=== PATIENT | male | born 1940 | race Caucasian/White ===

== ENCOUNTER 2018-05-26 15:00 | Inpatient (IN) | payer OTHER, MEDICAID ==
[2018-05-26] MEDS ORDERED: DILTIAZEM 25 MG INJ (15:33)
[2018-05-26 15:34] LABS: ADD MAN DIFF? NO
[2018-05-26] MEDS: ASPIRIN 81 MG TAB PO (15:36)
[2018-05-26] MEDS: DILTIAZEM 25 MG INJ IV (15:37)
[2018-05-26] MEDS: SOD CHLORIDE 0.9% 500 ML IV (15:37)
[2018-05-26 15:40] LABS: HEMATOCRIT 38.9 % (42.0-52.0); HEMOGLOBIN 13.1 g/dl (14.0-18.0); LYMPHOCYTES % 16.9 % (15.0-51.0); MEAN CORPUSCULAR HEMOGLOBIN 28.1 pg (29.0-33.0); MEAN CORPUSCULAR HGB CONC 33.7 g/dl (32.0-37.0); MEAN CORPUSCULAR VOLUME 83.5 fl (82.0-101.0); MEAN PLATELET VOLUME 12.2 fl (7.4-10.4); NEUTROPHILS % 65.6 % (39.0-77.0); PLATELET COUNT 195 10^3/UL (140-415); RED BLOOD COUNT 4.66 10^6/ul (4.70-6.10); RED CELL DISTRIBUTION WIDTH 14.6 % (11.5-14.5)
[2018-05-26 15:41] LABS: BASOPHIL # 0.1 10^3/ul (0.0-0.1); BASOPHILS % 1.5 % (0.0-2.0); EOSINOPHILS # 0.6 10^3/ul (0.0-0.5); LYMPHOCYTES # 1.4 10^3/ul (0.8-2.9); MONOCYTE # 0.7 10^3/ul (0.3-0.9); MONOCYTES % 8.5 % (0.0-11.0); NEUTROPHIL # 5.2 10^3/ul (1.6-7.5)
[2018-05-26 16:19] LABS: TROPONIN-I < 0.012 ng/ml (0.000-0.120)
[2018-05-26 16:22] LABS: ANION GAP 15 (8-16); BLOOD UREA NITROGEN 25 mg/dl (7-20); CALCIUM 9.3 mg/dl (8.4-10.2); CARBON DIOXIDE 21 mmol/L (21-31); CHLORIDE 110 mmol/L (97-110); CREATININE 1.49 mg/dl (0.61-1.24); GLUCOSE 102 mg/dl (70-220); POTASSIUM 3.8 mmol/L (3.5-5.1); SODIUM 142 mmol/L (135-144)
[2018-05-26] MEDS ORDERED: ACETAMINOPHEN 325 MG TAB PO (18:30)
[2018-05-26] MEDS ORDERED: ONDANSETRON 4 MG INJ IV (18:30)
[2018-05-26] MEDS: METOPROLOL 50 MG TAB GTB ×2 (19:00→20:20)
[2018-05-26] MEDS ORDERED: NACL 0.9% 3 ML SYG IV (19:00)
[2018-05-26] MEDS: FUROSEMIDE 20 MG INJ IV ×2 (20:13→20:16)
[2018-05-26] MEDS: METOPROLOL 50 MG TAB PO (20:17)
[2018-05-26] MEDS: TERAZOSIN 1 MG CAP PO (23:52)
[2018-05-27] MEDS: FUROSEMIDE 20 MG INJ IV ×2 (05:43→17:25)
[2018-05-27 06:14] LABS: ADD MAN DIFF? NO
[2018-05-27 06:16] LABS: WHITE BLOOD COUNT 9.4 10^3/ul (4.8-10.8)
[2018-05-27 06:16] LABS: BASOPHIL # 0.1 10^3/ul (0.0-0.1); BASOPHILS % 1.1 % (0.0-2.0); EOSINOPHILS # 0.3 10^3/ul (0.0-0.5); EOSINOPHILS % 3.5 % (0.0-7.0); HEMATOCRIT 41.2 % (42.0-52.0); HEMOGLOBIN 13.7 g/dl (14.0-18.0); LYMPHOCYTES % 10.3 % (15.0-51.0); MEAN CORPUSCULAR HEMOGLOBIN 28.2 pg (29.0-33.0); MEAN CORPUSCULAR HGB CONC 33.3 g/dl (32.0-37.0); MEAN CORPUSCULAR VOLUME 84.9 fl (82.0-101.0); MEAN PLATELET VOLUME 12.6 fl (7.4-10.4); MONOCYTE # 0.6 10^3/ul (0.3-0.9); MONOCYTES % 6.3 % (0.0-11.0); NEUTROPHIL # 7.4 10^3/ul (1.6-7.5); NEUTROPHILS % 78.4 % (39.0-77.0); PLATELET COUNT 192 10^3/UL (140-415); RED BLOOD COUNT 4.85 10^6/ul (4.70-6.10); RED CELL DISTRIBUTION WIDTH 14.6 % (11.5-14.5)
[2018-05-27 06:45] LABS: HEMOGLOBIN A1C 5.6 % (0-5.9)
[2018-05-27 07:01] LABS: ADD UMIC NO; UR ASCORBIC ACID NEGATIVE (NEGATIVE); UR BILIRUBIN (Dip) NEGATIVE (NEGATIVE); UR BLOOD (Dip) NEGATIVE (NEGATIVE); UR CLARITY CLEAR (CLEAR); UR COLOR STRAW (YELLOW); UR GLUCOSE (Dip) NEGATIVE (NEGATIVE); UR KETONES (Dip) NEGATIVE (NEGATIVE); UR LEUKOCYTE ESTERASE (Dip) NEGATIVE Leu/ul (NEGATIVE); UR NITRITE (Dip) NEGATIVE (NEGATIVE); UR SPECIFIC GRAVITY (Dip) 1.009 (1.003-1.030); UR TOTAL PROTEIN (Dip) NEGATIVE (NEGATIVE); UR UROBILINOGEN (Dip) NEGATIVE (NEGATIVE)
[2018-05-27 07:03] LABS: ALANINE AMINOTRANSFERASE 48 IU/L (13-69); ALBUMIN/GLOBULIN RATIO 1.14; ALKALINE PHOSPHATASE 88 IU/L (42-121); ANION GAP 16 (8-16); ASPARTATE AMINO TRANSFERASE 48 IU/L (15-46); BILIRUBIN,INDIRECT 0.8 mg/dl (0-1.1); BILIRUBIN,TOTAL 0.8 mg/dl (0.2-1.3); BLOOD UREA NITROGEN 26 mg/dl (7-20); CALCIUM 9.1 mg/dl (8.4-10.2); CARBON DIOXIDE 18 mmol/L (21-31); CHLORIDE 111 mmol/L (97-110); CREATININE 1.45 mg/dl (0.61-1.24); GLUCOSE 109 mg/dl (70-220); SODIUM 141 mmol/L (135-144); TOTAL PROTEIN 7.5 g/dl (6.1-8.1)
[2018-05-27 07:21] LABS: THYROID STIMULATING HORMONE 0.812 MIU/L (0.465-4.680)
[2018-05-27] MEDS: AMLODIPINE 2.5 MG TAB PO (09:20)
[2018-05-27] MEDS: METOPROLOL 50 MG TAB GTB ×2 (09:21→21:50)
[2018-05-27] MEDS: TERAZOSIN 1 MG CAP PO (21:51)
[2018-05-27] MEDS: CALCIUM CARBONATE 500 MG CHEW TAB PO (21:57)
[2018-05-27] MEDS: ZOLPIDEM 5 MG TAB PO (21:57)
[2018-05-28 05:31] LABS: ADD MAN DIFF? NO
[2018-05-28 05:36] LABS: BASOPHIL # 0.1 10^3/ul (0.0-0.1); EOSINOPHILS # 0.4 10^3/ul (0.0-0.5); EOSINOPHILS % 3.1 % (0.0-7.0); HEMATOCRIT 41.8 % (42.0-52.0); LYMPHOCYTES # 1.4 10^3/ul (0.8-2.9); LYMPHOCYTES % 11.2 % (15.0-51.0); MEAN CORPUSCULAR HEMOGLOBIN 27.8 pg (29.0-33.0); MEAN CORPUSCULAR HGB CONC 33.5 g/dl (32.0-37.0); MEAN CORPUSCULAR VOLUME 83.1 fl (82.0-101.0); MEAN PLATELET VOLUME 12.3 fl (7.4-10.4); MONOCYTES % 8.1 % (0.0-11.0); NEUTROPHIL # 9.4 10^3/ul (1.6-7.5); PLATELET COUNT 209 10^3/UL (140-415); RED BLOOD COUNT 5.03 10^6/ul (4.70-6.10); RED CELL DISTRIBUTION WIDTH 14.9 % (11.5-14.5)
[2018-05-28 05:36] LABS: WHITE BLOOD COUNT 12.4 10^3/ul (4.8-10.8)
[2018-05-28] MEDS: FUROSEMIDE 20 MG INJ IV (05:39)
[2018-05-28 06:18] LABS: ANION GAP 18 (8-16); BLOOD UREA NITROGEN 34 mg/dl (7-20); CALCIUM 9.1 mg/dl (8.4-10.2); CARBON DIOXIDE 20 mmol/L (21-31); CHLORIDE 106 mmol/L (97-110); CREATININE 1.41 mg/dl (0.61-1.24); GLUCOSE 109 mg/dl (70-220); POTASSIUM 3.4 mmol/L (3.5-5.1); SODIUM 141 mmol/L (135-144)
[2018-05-28] MEDS: METOPROLOL 50 MG TAB GTB ×2 (08:36→21:57)
[2018-05-28] MEDS: AMLODIPINE 2.5 MG TAB PO (08:36)
[2018-05-28 15:30] LABS: CHOLESTEROL 194 mg/dl (100-200)
[2018-05-28 15:30] LABS: CHOL/HDL RATIO 6.6 RATIO; HDL CHOLESTEROL 29 mg/dl (31-75); LDL CHOLESTEROL,CALCULATED 144 mg/dl; TRIGLYCERIDES 107 mg/dl (0-149)
[2018-05-28] MEDS: POTASSIUM CHLORIDE (SR) 20 MEQ TAB PO (15:36)
[2018-05-28] MEDS: APIXABAN 5 MG TABLET PO ×2 (15:36→21:56)
[2018-05-28 15:39] LABS: B-TYPE NATRIURETIC PEPTIDE 5750 PG/ML (0-450)
[2018-05-28 19:57] LABS: TROPONIN-I < 0.012 ng/ml (0.000-0.120)
[2018-05-28] MEDS ORDERED: TAMSULOSIN (SR) 0.4 MG CAP PO (21:00)
[2018-05-28] MEDS: TAMSULOSIN (SR) 0.4 MG CAP PO (21:56)
[2018-05-28] MEDS: TERAZOSIN 1 MG CAP PO (21:57)
[2018-05-28] MEDS: AL HYDROX/MG HYDROX/SIMETH 30 ML CUP PO (23:33)
[2018-05-29 02:05] LABS: TROPONIN-I < 0.012 ng/ml (0.000-0.120)
[2018-05-29] MEDS: AL HYDROX/MG HYDROX/SIMETH 30 ML CUP PO (04:19)
[2018-05-29 06:28] LABS: TROPONIN-I < 0.012 ng/ml (0.000-0.120)
[2018-05-29 06:30] LABS: ANION GAP 16 (8-16); BLOOD UREA NITROGEN 41 mg/dl (7-20); CALCIUM 8.3 mg/dl (8.4-10.2); CARBON DIOXIDE 20 mmol/L (21-31); CHLORIDE 104 mmol/L (97-110); CREATININE 1.51 mg/dl (0.61-1.24); GLUCOSE 108 mg/dl (70-220); POTASSIUM 3.8 mmol/L (3.5-5.1); SODIUM 136 mmol/L (135-144)
[2018-05-29] MEDS: APIXABAN 5 MG TABLET PO ×2 (08:11→21:20)
[2018-05-29] MEDS: AMLODIPINE 2.5 MG TAB PO (08:11)
[2018-05-29] MEDS: METOPROLOL 50 MG TAB GTB ×2 (08:11→21:20)
[2018-05-29] MEDS: FUROSEMIDE 40 MG INJ IV (09:40)
[2018-05-29 10:14] LABS: MAGNESIUM 2.1 mg/dl (1.7-2.5)
[2018-05-29] MEDS: DIGOXIN 500 MCG INJ IV (11:25)
[2018-05-29 14:30] LABS: TROPONIN-I < 0.012 ng/ml (0.000-0.120)
[2018-05-29] MEDS: HYDROCODONE/APAP (5/325) TAB PO (15:54)
[2018-05-29 19:25] LABS: TROPONIN-I < 0.012 ng/ml (0.000-0.120)
[2018-05-29] MEDS: TAMSULOSIN (SR) 0.4 MG CAP PO (21:20)
[2018-05-29] MEDS: TERAZOSIN 1 MG CAP PO (21:20)
[2018-05-30 01:31] LABS: TROPONIN-I < 0.012 ng/ml (0.000-0.120)
[2018-05-30] MEDS: APIXABAN 5 MG TABLET PO (08:12)
[2018-05-30] MEDS: METOPROLOL 50 MG TAB GTB (08:12)
[2018-05-30] MEDS: FUROSEMIDE 40 MG INJ IV (08:12)
[2018-05-30] MEDS: DIGOXIN 0.125 MG TAB PO (12:15)
[2018-05-30] MEDS: AL HYDROX/MG HYDROX/SIMETH 30 ML CUP PO (15:14)
== END 2018-05-30 19:56 | disposition left against medical advice (07) | DRG 308 ==
LOC: E/R 15:00 → 6WM 18:26
DX: I48.0 Paroxysmal atrial fibrillation (principal); I50.33 Acute on chronic diastolic (congestive) heart failure; I11.0 Hypertensive heart disease with heart failure; I34.0 Nonrheumatic mitral (valve) insufficiency; N40.0 Benign prostatic hyperplasia without lower urinary tract symptoms
CPT/HCPCS: 36415; 71045; 80048; 80053; 80061; 81003; 83036; 83735; 83880; 84443; 84484; 85025; 87086; 93005; 93306; 96361; 96374; 97161; 99285-25; G0378

== ENCOUNTER 2018-09-29 13:22 | Inpatient (IN) | payer OTHER, MEDICAID ==
[2018-09-29] MEDS: SOD CHLORIDE 0.9% 500 ML IV (16:38)
[2018-09-29 16:40] LABS: ADD MAN DIFF? NO
[2018-09-29 16:43] LABS: BASOPHIL # 0.1 10^3/ul (0.0-0.1); BASOPHILS % 0.7 % (0.0-2.0); EOSINOPHILS # 0.2 10^3/ul (0.0-0.5); EOSINOPHILS % 1.4 % (0.0-7.0); HEMATOCRIT 38.6 % (42.0-52.0); HEMOGLOBIN 12.7 g/dl (14.0-18.0); LYMPHOCYTES % 8.6 % (15.0-51.0); MEAN CORPUSCULAR HEMOGLOBIN 28.5 pg (29.0-33.0); MEAN CORPUSCULAR HGB CONC 32.9 g/dl (32.0-37.0); MEAN CORPUSCULAR VOLUME 86.5 fl (82.0-101.0); MEAN PLATELET VOLUME 11.9 fl (7.4-10.4); MONOCYTE # 0.8 10^3/ul (0.3-0.9); MONOCYTES % 6.8 % (0.0-11.0); NEUTROPHIL # 9.1 10^3/ul (1.6-7.5); NEUTROPHILS % 81.6 % (39.0-77.0); PLATELET COUNT 207 10^3/UL (140-415); RED BLOOD COUNT 4.46 10^6/ul (4.70-6.10); RED CELL DISTRIBUTION WIDTH 15.4 % (11.5-14.5)
[2018-09-29 16:43] LABS: WHITE BLOOD COUNT 11.1 10^3/ul (4.8-10.8)
[2018-09-29 16:57] LABS: ANION GAP 13 (5-13); BLOOD UREA NITROGEN 22 mg/dl (7-20); CALCIUM 9.4 mg/dl (8.4-10.2); CARBON DIOXIDE 19 mmol/L (21-31); CHLORIDE 96 mmol/L (97-110); CREATININE 1.28 mg/dl (0.61-1.24); GLUCOSE 121 mg/dl (70-220); POTASSIUM 4.8 mmol/L (3.5-5.1); SODIUM 128 mmol/L (135-144)
[2018-09-29 17:09] LABS: B-TYPE NATRIURETIC PEPTIDE 7310 PG/ML (0-450); TROPONIN-I < 0.012 ng/ml (0.000-0.120)
[2018-09-29 17:40] LABS: INR 1.17; PT RATIO 1.2
[2018-09-29 17:41] LABS: PARTIAL THROMBOPLASTIN TIME 34.3 Sec (23.0-35.0)
[2018-09-29] MEDS: DICYCLOMINE 10 MG CAP PO (17:52)
[2018-09-29] MEDS ORDERED: NACL 0.9% 3 ML SYG IV (20:30)
[2018-09-29] MEDS ORDERED: ONDANSETRON 4 MG INJ IV ×2 (20:30)
[2018-09-29] MEDS ORDERED: BISACODYL (EC) 5 MG TAB PO (20:30)
[2018-09-29] MEDS ORDERED: DOCUSATE SODIUM 100 MG CAP PO (20:30)
[2018-09-29] MEDS ORDERED: ACETAMINOPHEN 325 MG TAB PO (20:30)
[2018-09-29] MEDS: ATORVASTATIN 20 MG TAB PO (22:40)
[2018-09-29] MEDS: ALBUMIN HUMAN 25% 100 ML IV (22:40)
[2018-09-29] MEDS: DILTIAZEM 30 MG TAB PO (22:41)
[2018-09-29] MEDS: ENOXAPARIN 100 MG/ML SYG SC (22:43)
[2018-09-30] MEDS: ZOLPIDEM 5 MG TAB PO (00:02)
[2018-09-30] MEDS: ALBUMIN HUMAN 25% 100 ML IV (00:06)
[2018-09-30] MEDS: ACETAMINOPHEN 325 MG TAB PO ×3 (03:34→21:19)
[2018-09-30 05:24] LABS: ADD MAN DIFF? NO
[2018-09-30 05:27] LABS: BASOPHIL # 0.1 10^3/ul (0.0-0.1); EOSINOPHILS # 0.3 10^3/ul (0.0-0.5); HEMATOCRIT 32.5 % (42.0-52.0); HEMOGLOBIN 10.7 g/dl (14.0-18.0); LYMPHOCYTES % 12.5 % (15.0-51.0); MEAN CORPUSCULAR HEMOGLOBIN 28.5 pg (29.0-33.0); MEAN CORPUSCULAR HGB CONC 32.9 g/dl (32.0-37.0); MEAN CORPUSCULAR VOLUME 86.7 fl (82.0-101.0); MEAN PLATELET VOLUME 12.3 fl (7.4-10.4); MONOCYTE # 0.7 10^3/ul (0.3-0.9); MONOCYTES % 8.9 % (0.0-11.0); NEUTROPHIL # 5.8 10^3/ul (1.6-7.5); PLATELET COUNT 141 10^3/UL (140-415); RED BLOOD COUNT 3.75 10^6/ul (4.70-6.10); RED CELL DISTRIBUTION WIDTH 15.4 % (11.5-14.5)
[2018-09-30 05:40] LABS: HEMOGLOBIN A1C 5.4 % (0-5.9)
[2018-09-30 05:56] LABS: ALANINE AMINOTRANSFERASE 43 IU/L (13-69); ALBUMIN 4.2 g/dl (3.3-4.9); ALKALINE PHOSPHATASE 88 IU/L (42-121); ANION GAP 16 (5-13); ASPARTATE AMINO TRANSFERASE 28 IU/L (15-46); BILIRUBIN,INDIRECT 1.6 mg/dl (0-1.1); BILIRUBIN,TOTAL 1.6 mg/dl (0.2-1.3); BLOOD UREA NITROGEN 19 mg/dl (7-20); CALCIUM 8.8 mg/dl (8.4-10.2); CARBON DIOXIDE 18 mmol/L (21-31); CHLORIDE 97 mmol/L (97-110); CHOL/HDL RATIO 4.5 RATIO; CHOLESTEROL 96 mg/dl (100-200); CREATININE 1.11 mg/dl (0.61-1.24); GLUCOSE 94 mg/dl (70-220); HDL CHOLESTEROL 21 mg/dl (31-75); LDL CHOLESTEROL,CALCULATED 60 mg/dl; MAGNESIUM 1.9 mg/dl (1.7-2.5); POTASSIUM 4.1 mmol/L (3.5-5.1); SODIUM 131 mmol/L (135-144); TRIGLYCERIDES 76 mg/dl (0-149)
[2018-09-30] MEDS: SOD CHLORIDE 0.9% 250 ML IV (06:00)
[2018-09-30 06:21] LABS: THYROID STIMULATING HORMONE 0.939 MIU/L (0.465-4.680)
[2018-09-30] MEDS: DILTIAZEM 30 MG TAB PO (09:39)
[2018-09-30] MEDS: APIXABAN 5 MG TABLET PO ×2 (13:15→20:44)
[2018-09-30] MEDS: FUROSEMIDE 20 MG TAB PO (13:16)
[2018-09-30] MEDS: METHYLPREDNISOLONE 40 MG INJ IV ×2 (15:10→20:44)
[2018-09-30] MEDS: LORAZEPAM 2 MG INJ IV ×2 (15:10→21:14)
[2018-09-30] MEDS: SERTRALINE 50 MG TAB PO (15:10)
[2018-09-30] MEDS: morphine 2 MG INJ IV (15:39)
[2018-09-30] MEDS ORDERED: ALBUTEROL 0.083% (NEB) 2.5 MG/3 ML AMP HHN (16:00)
[2018-09-30] MEDS: ALBUTEROL/IPRATROPIUM (NEB) 3 ML AMP HHN ×2 (16:18→20:19)
[2018-09-30] MEDS: morphine 4 MG/ML VIAL IV (17:24)
[2018-09-30] MEDS: FUROSEMIDE 20 MG INJ IV (17:24)
[2018-09-30] MEDS: ATORVASTATIN 20 MG TAB PO (20:44)
[2018-10-01 06:08] LABS: ADD MAN DIFF? NO
[2018-10-01 06:10] LABS: ABNORMAL IP MESSAGE 1; BASOPHILS % 0.1 % (0.0-2.0); HEMATOCRIT 35.7 % (42.0-52.0); HEMOGLOBIN 11.9 g/dl (14.0-18.0); LYMPHOCYTES # 0.4 10^3/ul (0.8-2.9); LYMPHOCYTES % 3.7 % (15.0-51.0); MEAN CORPUSCULAR HEMOGLOBIN 28.4 pg (29.0-33.0); MEAN CORPUSCULAR HGB CONC 33.3 g/dl (32.0-37.0); MEAN CORPUSCULAR VOLUME 85.2 fl (82.0-101.0); MEAN PLATELET VOLUME 12.8 fl (7.4-10.4); MONOCYTE # 0.1 10^3/ul (0.3-0.9); MONOCYTES % 1.4 % (0.0-11.0); NEUTROPHIL # 9.4 10^3/ul (1.6-7.5); PLATELET COUNT 151 10^3/UL (140-415); POSITIVE DIFF @See below; RED BLOOD COUNT 4.19 10^6/ul (4.70-6.10)
[2018-10-01 06:59] LABS: ALANINE AMINOTRANSFERASE 40 IU/L (13-69); ALBUMIN 4.3 g/dl (3.3-4.9); ALBUMIN/GLOBULIN RATIO 1.48; ALKALINE PHOSPHATASE 91 IU/L (42-121); ANION GAP 19 (5-13); ASPARTATE AMINO TRANSFERASE 28 IU/L (15-46); BILIRUBIN,INDIRECT 1.1 mg/dl (0-1.1); BILIRUBIN,TOTAL 1.1 mg/dl (0.2-1.3); BLOOD UREA NITROGEN 22 mg/dl (7-20); CARBON DIOXIDE 20 mmol/L (21-31); CHLORIDE 95 mmol/L (97-110); CREATININE 1.11 mg/dl (0.61-1.24); GLUCOSE 149 mg/dl (70-220); MAGNESIUM 1.9 mg/dl (1.7-2.5); SODIUM 134 mmol/L (135-144); TOTAL PROTEIN 7.2 g/dl (6.1-8.1)
[2018-10-01] MEDS: ALBUTEROL/IPRATROPIUM (NEB) 3 ML AMP HHN ×3 (07:52→20:39)
[2018-10-01] MEDS: FUROSEMIDE 20 MG INJ IV (08:46)
[2018-10-01] MEDS: METHYLPREDNISOLONE 40 MG INJ IV ×2 (08:46→20:41)
[2018-10-01] MEDS: APIXABAN 5 MG TABLET PO ×2 (08:47→20:37)
[2018-10-01] MEDS: DILTIAZEM (CD) 120 MG CAP PO (08:47)
[2018-10-01] MEDS: ACETAMINOPHEN 325 MG TAB PO (18:00)
[2018-10-01] MEDS: ATORVASTATIN 20 MG TAB PO (20:37)
[2018-10-01] MEDS: LORAZEPAM 2 MG INJ IV (20:41)
[2018-10-02] MEDS: LORAZEPAM 2 MG INJ IV (02:07)
[2018-10-02 05:35] LABS: ADD MAN DIFF? NO
[2018-10-02 05:37] LABS: WHITE BLOOD COUNT 18.9 10^3/ul (4.8-10.8)
[2018-10-02 05:37] LABS: ABNORMAL IP MESSAGE 1; BASOPHILS % 0.1 % (0.0-2.0); HEMATOCRIT 32.7 % (42.0-52.0); LYMPHOCYTES # 0.4 10^3/ul (0.8-2.9); LYMPHOCYTES % 2.2 % (15.0-51.0); MEAN CORPUSCULAR HEMOGLOBIN 28.4 pg (29.0-33.0); MEAN CORPUSCULAR HGB CONC 33.6 g/dl (32.0-37.0); MEAN CORPUSCULAR VOLUME 84.3 fl (82.0-101.0); MEAN PLATELET VOLUME 12.6 fl (7.4-10.4); MONOCYTE # 0.4 10^3/ul (0.3-0.9); MONOCYTES % 2.2 % (0.0-11.0); NEUTROPHIL # 17.9 10^3/ul (1.6-7.5); NEUTROPHILS % 94.8 % (39.0-77.0); PLATELET COUNT 156 10^3/UL (140-415); POSITIVE DIFF @See below; RED BLOOD COUNT 3.88 10^6/ul (4.70-6.10); RED CELL DISTRIBUTION WIDTH 15.5 % (11.5-14.5)
[2018-10-02 06:18] LABS: ALANINE AMINOTRANSFERASE 46 IU/L (13-69); ALBUMIN 4.1 g/dl (3.3-4.9); ALBUMIN/GLOBULIN RATIO 1.46; ALKALINE PHOSPHATASE 84 IU/L (42-121); ANION GAP 21 (5-13); ASPARTATE AMINO TRANSFERASE 31 IU/L (15-46); BILIRUBIN,INDIRECT 0.8 mg/dl (0-1.1); BILIRUBIN,TOTAL 0.8 mg/dl (0.2-1.3); BLOOD UREA NITROGEN 35 mg/dl (7-20); CALCIUM 8.7 mg/dl (8.4-10.2); CARBON DIOXIDE 19 mmol/L (21-31); CHLORIDE 91 mmol/L (97-110); CREATININE 1.24 mg/dl (0.61-1.24); GLUCOSE 157 mg/dl (70-220); MAGNESIUM 1.9 mg/dl (1.7-2.5); SODIUM 131 mmol/L (135-144); TOTAL PROTEIN 6.9 g/dl (6.1-8.1)
[2018-10-02] MEDS: APIXABAN 5 MG TABLET PO (08:22)
[2018-10-02] MEDS: METHYLPREDNISOLONE 40 MG INJ IV (08:23)
[2018-10-02] MEDS: DILTIAZEM (CD) 120 MG CAP PO (08:23)
[2018-10-02] MEDS: FUROSEMIDE 20 MG INJ IV (08:24)
[2018-10-02] MEDS: ALBUTEROL/IPRATROPIUM (NEB) 3 ML AMP HHN ×3 (09:10→20:00)
[2018-10-03] MEDS ORDERED: FUROSEMIDE 20 MG TAB PO (09:00)
== END 2018-10-02 20:21 | DRG 291 ==
LOC: E/R 13:22 → 6WM 20:04
PROC: B246ZZ4 Ultrasonography of Right and Left Heart, Transesophageal (ICD-10-PCS; principal; 2018-09-30)
DX: I13.0 Hypertensive heart and chronic kidney disease with heart failure and stage 1 through stage 4 chronic kidney disease, or unspecified chronic kidney disease (principal); I50.33 Acute on chronic diastolic (congestive) heart failure; E87.1 Hypo-osmolality and hyponatremia; N17.9 Acute kidney failure, unspecified; J44.1 Chronic obstructive pulmonary disease with (acute) exacerbation; N18.9 Chronic kidney disease, unspecified; G83.9 Paralytic syndrome, unspecified; I34.0 Nonrheumatic mitral (valve) insufficiency; I48.2 Chronic atrial fibrillation; E86.0 Dehydration; I27.20 Pulmonary hypertension, unspecified; Z87.891 Personal history of nicotine dependence
CPT/HCPCS: 36415; 71045; 76705; 80048; 80053; 80061; 83036; 83605; 83735; 83880; 84443; 84484; 85025; 85610; 85730; 87040; 93005; 93306; 93970; 94640; 94664; 97162; 97165; 99285-25

== ENCOUNTER 2018-11-25 06:40 | Emergency (ER) | payer OTHER, MEDICAID ==
[2018-11-25] MEDS: ONDANSETRON (ODT) 4 MG TAB ODT (07:10)
[2018-11-25] MEDS: morphine 10 MG INJ IM (07:10)
== END 2018-11-25 11:50 | disposition home or self-care (01) ==
LOC: E/R 06:40
DX: S39.012A Strain of muscle, fascia and tendon of lower back, initial encounter (principal); S13.9XXA Sprain of joints and ligaments of unspecified parts of neck, initial encounter; R40.2142 Coma scale, eyes open, spontaneous, at arrival to emergency department; R40.2362 Coma scale, best motor response, obeys commands, at arrival to emergency department; I11.0 Hypertensive heart disease with heart failure; I50.9 Heart failure, unspecified; W18.30XA Fall on same level, unspecified, initial encounter; Y92.002 Bathroom of unspecified non-institutional (private) residence as the place of occurrence of the external cause
CPT/HCPCS: 72040; 72100; 72125; 96372; 99285-25

== ENCOUNTER 2019-05-10 10:16 | Emergency (ER) | payer OTHER, MEDICAID | END 2019-05-10 11:24 | disposition home or self-care (01) | LOC: FTE 10:16 | DX: K64.9 Unspecified hemorrhoids (principal); I11.0 Hypertensive heart disease with heart failure; I50.9 Heart failure, unspecified; I48.91 Unspecified atrial fibrillation | CPT/HCPCS: 99283 ==